=== PATIENT | female | born 1985 | race Caucasian/White ===

== ENCOUNTER 2018-11-13 15:16 | Emergency (ER) | payer OTHER ==
[~2018-11-13] VITALS: Ht 165.1 cm; Wt 76.7 kg
[2018-11-13 15:26] VITALS: Ht 165.1 cm; Wt 76.7 kg
[2018-11-13 17:38] LABS: BASOPHIL % 0.1 % (0-2); PLATELET COUNT 366 x10^3mcL (130-400)
[2018-11-13 17:40] LABS: RED CELL DISTRIBUTION WIDTH 21.5 % (11.5-14.5)
[2018-11-13 18:05] LABS: CALCIUM 9.3 mg/dL (8.5-10.1); CARBON DIOXIDE 25.1 mmol/L (21-32); CHLORIDE SERUM 104 mmol/L (98-107); CREATININE SERUM 0.6 mg/dL (0.6-1.0); GFR1 > 60 mL/min; GLUCOSE SERUM 98 mg/dL (74-106); SODIUM SERUM 139 mmol/L (136-145)
[2018-11-13 18:10] LABS: ALBUMIN 3.7 g/dL (3.4-5.0); ALKALINE PHOSPHATASE 89 U/L (46-116); ALT/SGPT 26 U/L (14-59); AST/SGOT 21 U/L (15-37); BILIRUBIN TOTAL 0.34 mg/dL (0.20-1.00)
[2018-11-13 18:12] LABS: TOTAL PROTEIN, SERUM 9.2 g/dL (6.4-8.2)
[2018-11-13 18:13] LABS: rbc morphology (normal/abnorm) ABNORMAL (NORMAL)
[2018-11-13 18:15] LABS: tear drop cell (dacryocyte) 1+
[2018-11-13 18:16] LABS: ovalocyte/elliptocyte 2+
[2018-11-13 18:37] VITALS: BP 125/88
== END 2018-11-13 18:37 | disposition home or self-care (01) ==
LOC: ED 15:16
PROVIDERS: Emergency Medicine
DX: G44.209 Tension-type headache, unspecified, not intractable (principal); D50.9 Iron deficiency anemia, unspecified
CPT/HCPCS: 36415; J1885; J2765; J8597

== ENCOUNTER 2019-03-26 10:27 | Emergency (ER) | payer OTHER ==
[~2019-03-26] VITALS: Ht 157.5 cm; Wt 75.7 kg
[2019-03-26 10:50] VITALS: Ht 157.5 cm; Wt 75.7 kg
[2019-03-26 14:41] LABS: BASOPHIL % 1.5 % (0-2); PLATELET COUNT 379 x10^3mcL (130-400)
[2019-03-26 14:51] LABS: CALCIUM 8.3 mg/dL (8.5-10.1); CARBON DIOXIDE 28.3 mmol/L (21-32); CHLORIDE SERUM 104 mmol/L (98-107); CREATININE SERUM 0.6 mg/dL (0.6-1.0); GFR1 > 60 mL/min; GLUCOSE SERUM 87 mg/dL (74-106); SODIUM SERUM 141 mmol/L (136-145)
[2019-03-26 14:56] LABS: ALBUMIN 3.5 g/dL (3.4-5.0); ALKALINE PHOSPHATASE 78 U/L (46-116); ALT/SGPT 28 U/L (14-59); AST/SGOT 26 U/L (15-37); BILIRUBIN TOTAL 0.2 mg/dL (0.20-1.00); LIPASE 133 IU/L (73-393); TOTAL PROTEIN, SERUM 8.4 g/dL (6.4-8.2)
[2019-03-26 19:28] VITALS: BP 125/77
== END 2019-03-26 19:28 | disposition home or self-care (01) ==
LOC: ED 10:27
PROVIDERS: Emergency Medicine
DX: N94.6 Dysmenorrhea, unspecified (principal); N64.4 Mastodynia; Z86.2 Personal history of diseases of the blood and blood-forming organs and certain disorders involving the immune mechanism
CPT/HCPCS: J1885; J2060; J7030; Q9967